=== PATIENT | male | born 1975 | race Two or more races ===

== ENCOUNTER 2016-06-07 20:51 | Emergency (ER) | payer MEDICAID ==
[2016-06-07] MEDS ORDERED: DIAZEPAM 5 MG TABLET ONE (23:42)
== END 2016-06-07 23:58 | disposition home or self-care (01) ==
LOC: ED 20:51
DX: F10.10 Alcohol abuse, uncomplicated (principal); F41.9 Anxiety disorder, unspecified
CPT/HCPCS: 99283 ×2; A9270

== ENCOUNTER 2016-06-11 11:43 | Emergency (ER) | payer MEDICAID ==
[2016-06-11] MEDS ORDERED: MAALOX/LIDO2%VISC/SIMETHICONE 40 ML BOT ONE (12:41)
== END 2016-06-11 13:00 | disposition home or self-care (01) ==
LOC: ED 11:43
DX: K29.20 Alcoholic gastritis without bleeding (principal)
CPT/HCPCS: 99283 ×2; A9270